=== PATIENT | male | born 1985 | race Caucasian/White ===

== ENCOUNTER 2021-10-12 14:37 | Outpatient (CLI) | payer BC | END 2021-10-12 14:38 | disposition home or self-care (01) | LOC: CSHMRI 14:37 | PROVIDERS: ATTEND Orthopaedic Surgery | DX: M25.521 Pain in right elbow (principal); M67.823 Other specified disorders of tendon, right elbow; S46.811A Strain of other muscles, fascia and tendons at shoulder and upper arm level, right arm, initial encounter; S56.811A Strain of other muscles, fascia and tendons at forearm level, right arm, initial encounter ==